=== PATIENT | male | born 1975 | race Caucasian/White ===

== ENCOUNTER 2016-06-26 20:39 | Emergency (ER) | payer SELFPAY ==
[2016-06-26 21:15] VITALS: BP 148/89
[2016-06-26] MEDS ORDERED: OXYCODONE-ACETAMINOPHEN 5-325 MG TABLET PO ONE (23:06)
--- NOTE | 2016-06-26 23:07 | ER Document Report ---
ED General - General Chief Complaint: Fall Injury Stated Complaint: BACK PAIN Mode of Arrival: Ambulatory Information source: Patient Notes: Patient presents emergency department with complaints of back pain. Patient reports that he was helping a friend yesterday standing on top of the ladder putting sheet rock on a ceiling and fell over approximately 6 feet lnading onto his right side onto carpet. He reports no change in LOC. Reports right- sided pain thoracic and low back pain since that time. Denies urinary or bowel incontinence or retention. LBM tonight, normal. Reports right foot numb. Report history of bulging disc with numbness to that foot. TRAVEL OUTSIDE OF THE [place] IN LAST 30 DAYS: No - HPI Onset: Yesterday Onset/Duration: Persistent Quality of pain: Achy Severity: Severe Pain Level: 5 Associated symptoms: None Exacerbated by: Movement Relieved by: Denies Similar symptoms previously: Yes Recently seen / treated by doctor: No - Related Data Allergies/Adverse Reactions: No Known Allergies Allergy (Verified 06/26/16 21:11) Past Medical History - General Information source: Patient - Social History Smoking Status: Current Every Day Smoker Cigarette use (# per day): Yes - 12/23 ppd Chew tobacco use (# tins/day): No Frequency of alcohol use: None Drug Abuse: None Family History: Reviewed & Not Pertinent Renal/ Medical History: Denies: Hx Peritoneal Dialysis Review of Systems - Review of Systems Notes: Review HPI for review of systems., All other systems negative Physical Exam - Vital signs Vitals: Temp Pulse Resp BP Pulse Ox 98.5 F 102 H 18 148/89 H 99 06/26/16 21:11 06/26/16 21:11 06/26/16 21:11 06/26/16 21:11 06/26/16 21:11 - Notes Notes: PHYSICAL EXAMINATION: GENERAL: Well-appearing and in no acute distress HEAD: Atraumatic, normocephalic. EYES: Pupils equal round and reactive to light, extraocular movements intact, sclera anicteric, conjunctiva are normal. ENT: nares patent, oropharynx clear without exudates. Moist mucous membranes. NECK: Normal range of motion, supple without lymphadenopathy No vertebral tenderness LUNGS: CTAB and equal. No wheezes rales or rhonchi. HEART: Regular rate and rhythm without murmurs ABDOMEN: Soft, no tenderness. No guarding, no rebound BACK: Complaints of generalized thoracic and lumbar back pain no obvious deformity good distal movement and sensation no weakness good reflexes EXTREMITIES: Normal range of motion, no pitting edema. No cyanosis. NEUROLOGICAL: Cranial nerves grossly intact. Normal sensory/motor exams. PSYCH: Normal mood, normal affect. SKIN: Warm, Dry, Course - Re-evaluation Re-evalutation: 06/27/16 The patient presents with low back pain without signs of spinal cord compression , cauda equine syndrome, infection, aneurysm, or other serious etiology. The patient is neurologically intact. The patient has good distal movement and sensation, denies urinary or bowel incontinence/retention. Given the extremely low risk of these diagnosis, further testing and evaluation for these possibilities does not appear to be indicated at this time. The patient has been instructed to return if the symptoms worsen or change in anyway. - Vital Signs Vital signs: Temp Pulse Resp BP Pulse Ox 98.5 F 102 H 18 148/89 H 99 06/26/16 21:11 06/26/16 21:11 06/26/16 21:11 06/26/16 21:11 06/26/16 21:11 - Diagnostic Test Radiology reviewed: Image reviewed, Reports reviewed - IMPRESSION: Trace multilevel spondylotic change without evidence of acute osseous injury EXAM DESCRIPTION: CT THORACIC SPINE WITHOUT COMPLETED DATE/TIME: 06/26/2016 11:36 pm REASON FOR STUDY: fall, back pain COMPARISON: None. TECHNIQUE: Axial images acquired through the thoracic spine without intravenous contrast. Images reviewed with lung, soft tissue and bone windows. Reconstructed coronal and sagittal MPR images reviewed. Images stored on PACS. All CT scanners at this facility use dose modulation, iterative reconstruction, and/or weight based dosing when appropriate to reduce radiation dose to as low as reasonably achievable (ALARA). [facility]: Dose Right [facility]: CareDose [facility]: Dose Right [facility]: Teradose 4D [facility]: [employer] RADIATION DOSE: 38.59 mGy. LIMITATIONS: None. FINDINGS: VISUALIZED LUNGS: No acute opacities. No pneumothorax. SOFT TISSUES: No soft tissue swelling. No masses. VERTEBRAL BODIES: No fractures. No dislocation. No acute findings. DISCS: Degenerative disc disease at multiple levels. ALIGNMENT: Normal. TRANSVERSE PROCESSES, POSTERIOR ELEMENTS: Small marginal osteophytes at multiple levels. HARDWARE: None in the spine. VISUALIZED RIBS: No fractures. OTHER: No other significant finding. TECHNICAL DOCUMENTATION: JOB ID: [id number] Quality ID # [id number]: Final reports with documentation of one or more dose reduction techniques (e.g., Automated exposure control, adjustment of the mA and/or kV according to patient size, use of iterative reconstruction technique) 2010 [employer]- All Rights Reserved CT/CT THORACIC SPINE WITHOUT IMPRESSION: Mild multilevel spondylotic change without evidence of acute osseous injury. Discharge - Discharge Clinical Impression: Back pain Qualifiers: Back pain location: back pain in unspecified location Chronicity: acute Back pain laterality: unspecified Qualified Code(s): M54.9 - Dorsalgia, unspecified Condition: Stable Disposition: HOME, SELF-CARE Instructions: Oral Narcotic Medication ([facility]), Muscle Relaxers ([facility]), Low Back Pain ([facility]), Ice Packs ([facility]) Additional Instructions: *You have been evaluated for back pain, degenerative disc disease, elevated blood pressure reading *Take medication as prescribed *Rest/Ice packs *Follow up with a primary care provider within one week for recheck *Return to ED for worsening condition, changes, needs, urinary or bowel incontinence or retention, numbness or tingling. Monitor your blood pressure. Your blood pressure was elevated today. This may be because you were anxious, in pain or because you need medication. It is important to follow up with your primary care provider for full evaluation. Prescriptions: Cyclobenzaprine HCl [Flexeril 10 Mg Tablet] 10 mg PO TID #30 tablet Oxycodone HCl/Acetaminophen [Percocet 5-325 mg Tablet] 1 - 2 tab PO ASDIR PRN # 15 tablet PRN Reason: Forms: Elevated Blood Pressure, Return to Work
== END 2016-06-27 00:17 | disposition home or self-care (01) ==
LOC: ER 20:39
DX: M54.6 Pain in thoracic spine (principal); M54.5 Low back pain; W11.XXXA Fall on and from ladder, initial encounter; Y93.H3 Activity, building and construction; R20.0 Anesthesia of skin; F17.210 Nicotine dependence, cigarettes, uncomplicated
CPT/HCPCS: 99283; 72128; 72131; L0120

== ENCOUNTER 2016-07-06 12:37 | Emergency (ER) | payer SELFPAY ==
[2016-07-06] MEDS ORDERED: DEXAMETHASONE SOD PHOS INJ 10 MG/1 ML VIAL IM ONE (13:27)
--- NOTE | 2016-07-06 13:28 | ER Document Report ---
ED Neck/Back Problem - General Chief Complaint: Low Back Pain Stated Complaint: BACK PAIN Time Seen by Provider: 07/06/16 13:00 Mode of Arrival: Ambulatory Information source: Patient Notes: 40-year-old male presents to ED for low back pain radiating down his right leg states she fell 2 weeks ago. States that the pain has been increasing. No loss of control of bowel or bladder muscle control. No loss of sensation. Walks freely. No new injuries. TRAVEL OUTSIDE OF THE [place] IN LAST 30 DAYS: No - HPI Patient complains to provider of: Lower back Onset: Other - Patient [place]. States that he fell 2 weeks ago and came into the ED was low back pain and muscle pain. His x-ray showed arthritis and degenerative disc disease Onset: Chronic Timing: Still present Quality of pain: Sharp - Radiating down right leg Severity: Severe Pain Level: 5 Context: Fall/near-fall - 2 weeks ago Recent injury: Yes - 2 weeks ago Associated symptoms: Like prior neck/back pain - Down right leg, Numbness/ tingling, Radiation to leg, Lower back pain. denies: Constipation, Incontinence , Motor loss, Sensory loss, Unable to urinate Exacerbated by: Nothing Relieved by: Nothing Similar symptoms previously: Yes Recently seen / treated by doctor: Yes - Related Data Allergies/Adverse Reactions: No Known Allergies Allergy (Verified 06/26/16 21:11) Past Medical History - General Information source: Patient - Social History Smoking Status: Current Every Day Smoker Cigarette use (# per day): Yes - one half packs per day Chew tobacco use (# tins/day): No Smoking Education Provided: Yes - less than 2 minutes Frequency of alcohol use: None Drug Abuse: None Family History: CAD, Hyperlipidemia, Hypertension, Malignancy Patient has suicidal ideation: No Patient has homicidal ideation: No - Past Medical History Cardiac Medical History: Reports: Hx Hypertension Pulmonary Medical History: Reports: Hx Asthma EENT Medical History: Reports: None Neurological Medical History: Reports: None Endocrine Medical History: Reports: None Renal/ Medical History: Reports: None Malignancy Medical History: Reports None GI Medical History: Reports: None Musculoskeltal Medical History: Reports Hx Arthritis, Reports Hx Musculoskeletal Deformity Skin Medical History: Reports None Psychiatric Medical History: Reports: None Traumatic Medical History: Reports: None Infectious Medical History: Reports: None Surgical Hx: Negative Past Surgical History: Reports: None Review of Systems - Review of Systems Constitutional: No symptoms reported EENT: No symptoms reported Cardiovascular: No symptoms reported Respiratory: No symptoms reported Gastrointestinal: No symptoms reported. denies: Constipation, Fecal incontinence Genitourinary: No symptoms reported. denies: Incontinence, Retention Male Genitourinary: No symptoms reported Musculoskeletal: Back pain, Muscle pain Skin: No symptoms reported Hematologic/Lymphatic: No symptoms reported Neurological/Psychological: Numbness, Tingling -: Yes All other systems reviewed and negative Physical Exam - Vital signs Vitals: Temp Pulse Resp BP Pulse Ox 97.8 F 100 16 133/84 H 100 07/06/16 12:46 07/06/16 12:46 07/06/16 12:46 07/06/16 12:46 07/06/16 12:46 Interpretation: Normal - General General appearance: Appears well, Alert - HEENT Head: Normocephalic, Atraumatic Eyes: Normal Pupils: PERRL - Respiratory Respiratory status: No respiratory distress Chest status: Nontender Breath sounds: Normal Chest palpation: Normal - Cardiovascular Rhythm: Regular Heart sounds: Normal auscultation Murmur: No - Abdominal Inspection: Normal Distension: No distension Bowel sounds: Normal Tenderness: Nontender Organomegaly: No organomegaly - Back Back: Normal, Tender, Vertebra tenderness. No: Deformity/step-off, CVA tenderness, Scars, Scoliosis, Wounds - Extremities General upper extremity: Normal inspection, Nontender, Normal color, Normal ROM , Normal temperature General lower extremity: Normal inspection, Nontender, Normal color, Normal ROM , Normal temperature, Normal weight bearing. No: Rosalie's sign - Neurological Neuro grossly intact: Yes Cognition: Normal Orientation: AAOx4 [place] Coma Scale Eye Opening: Spontaneous [place] Coma Scale Verbal: Oriented [place] Coma Scale Motor: Obeys Commands [place] Coma Scale Total: 15 Speech: Normal Cranial nerves: Normal Cerebellar coordination: Normal Motor strength normal: LUE, RUE, LLE, RLE Additional motor exam normals: Equal rail specialist Babinski reflex: Normal (flexor plantar) Sensory: Normal Knee - Reflex grade: 2 = Normal Ankle - Reflex grade: 2 = Normal - Psychological Associated symptoms: Normal affect, Normal mood - Skin Skin Temperature: Warm Skin Moisture: Dry Skin Color: Normal Course - Re-evaluation Re-evalutation: 07/06/16 13:45 Discussed x-ray from 2 weeks ago with patient patient was given Decadron in the emergency room discharged home with a prescription for 14 Percocet that he can take one twice a day until he follows up with his primary doctor in the beginning of July. The patient to make these Percocets last take ibuprofen during the day and use ice and heat packs. This is a chronic problem he's had this before he moved to [place] and had a MRI [place]. It was reactivated when he fell 2 weeks ago. 07/06/16 13:47 No signs of cauda equina. No loss of muscle control no loss of sensation no loss of control of bowel or bladder. - Vital Signs Vital signs: Temp Pulse Resp BP Pulse Ox 97.8 F 100 16 133/84 H 100 07/06/16 12:46 07/06/16 12:46 07/06/16 12:46 07/06/16 12:46 07/06/16 12:46 Discharge - Discharge Clinical Impression: Arthritis of low back, Degenerative disc disease, lumbar Condition: Stable Disposition: HOME, SELF-CARE Additional Instructions: LOW BACK PAIN: Three out of every four people will have an episode of disabling back pain during their lifetime. Most commonly the pain is due to straining of the muscles and ligaments in the low back. Usual treatment includes: (1) Rest on a firm surface. Avoid lying on your stomach. (2) Ice pack the painful area. After a few days, gentle heat may be used intermittently to relax the area, or ice packs can be continued. (3) Medication may be needed -- muscle relaxers and antiinflammatory medicines are commonly used. (4) As the back improves, exercises are prescribed to strengthen the back and abdominal muscles. Your doctor will advise you on the proper care for your back at each stage in your recovery. You may be better in a few days -- or healing may take several weeks. If new symptoms of a "herniated disc" (radiation of pain, numbness, or tingling down the back of the leg or weakness in the leg) occur, you should be re-examined. Further testing may be necessary. Chronic Back Pain Chronic back pain (pain persisting longer than three months) is a common problem. A medical evaluation can look for herniated disc, arthritis, osteoporosis, tumors, and infections. But at least half the time, there's no obvious treatable cause. Anxiety and depression tend to worsen back pain. Ibuprofen or other anti-inflammatory medicine can help. A heating pad, used for 15-20 minutes at a time, can ease pain. For this type of back pain, narcotic medicines should be avoided. Muscle relaxers are rarely helpful unless you're having spasms. Activity is important. Find an aerobic exercise program that your back can tolerate. Too much rest makes back pain worse. Specific back exercises are usually prescribed to strengthen the back and abdominal muscles. Often, a physical therapist can help. Avoid heavy lifting, working while bent over, or standing with both knees straight. Most back pain patients do better with a firm mattress. If new symptoms of a "herniated disc" (radiation of pain, numbness, or tingling down the back of the leg or weakness in the leg) occur, you should be re-examined. Chronic Pain Control Stress, inactivity, and depression make pain more severe regardless of the cause of the pain. Stress and poor physical condition can cause pain such as headaches and backache. Relaxation: Rest in a quiet place with your eyes closed for 20 minutes twice daily. Concentrate on a pleasant image, or simply "feel" your breathing. Clear your mind. Stress management: Deal with your "stressors." Either take action, or eliminate the stressor from your life. Don't let things hang over you. Accept those things you can't change. Nutrition: Eat small, balanced meals -- don't skip, don't overeat. Meals should be high-carbohydrate, low-sugar, low-fat. Exercise: Exercise helps painful conditions and eases stress. Get 30 minutes of moderate exercise, five days a week. Do an activity that does not flare your pain. Precautions: Pain which continues to disrupt daily activities, or which changes in nature, requires a medical evaluation. Pain Clinic referral is available. We do not manage chronic pain in the Emergency Department. We will try to appropriately help you through an acute flare of your chronic painful condition , but for on-going chronic pain that does not improve, you will need to see your private doctor or machine paint mixer. We do not provide repeated medication management of chronic painful conditions. If you wish, we can provide the name of local pain management physicians. ORAL NARCOTIC MEDICATION: You have been given a prescription for pain control. This medication is a narcotic. It's best taken with food, as nausea can result if taken on an empty stomach. Don't operate machinery or drive within six hours of taking this medication. Do not combine this medicine with alcohol, or with any medication which can cause sedation (such as cold tablets or sleeping pills) unless you get permission from the physician. Narcotics tend to cause constipation. If possible, drink plenty of fluids and eat a diet high in fiber and fruits. Please be aware that prescription narcotics also have the potential for abuse. People become addicted to these medications because of the general sense of wellbeing that they induce. This feeling along with a significant reduction in tension, anxiety, and aggression provides a stimulating seductive quality to these drugs. Once your pain is under control, we encourage you to discard your unused narcotics. STEROID MEDICATION: You have been given an injection of medicine of the cortisone/steroid class. This medication is used to control inflammation or allergy. It is often continued as a pill for a short period of time, until the acute process subsides. There are usually no side effects from short-term use of cortisone-like medications. Some persons feel an increased sense of well-being and are not sleepy at bedtime. Long-term use of cortisone medications is best avoided, unless required for a severe condition. If your condition does not remit, or relapses after the course of corticosteroid medication, you should consult your physician. ICE PACKS: Apply ice packs frequently against the painful area. Many different schedules are recommended, such as "20 minutes on, 20 minutes off" or "one hour ice, two hours rest." If you need to work, you may need to go longer between ice treatments. You should plan to have the area ice packed AT LEAST one fourth of the time. The ice should be applied over the wrap, tape, or splint, or over a layer of cloth -- not directly against the skin. Some ice bags have a built-in cloth and can be put directly on the skin. WARM PACKS: After approximately two days, apply gentle heat (such as a heating pad or hot water bottle) for about 20 to 30 minutes about every two hours -- at least four times daily. Warmth and elevation will help you make a more rapid recovery , and will ease the pain considerably. Do not use HOT heat, and never apply heat for longer than 30 minutes. The continuous heat can invisibly damage skin and muscles -- even when no burn is seen on the surface. Damaged muscles can make you MORE sore. FOLLOW-UP CARE: If you have been referred to a physician for follow-up care, call the physician s office for an appointment as you were instructed or within the next two days. If you experience worsening or a significant change in your symptoms, notify the physician immediately or return to the Emergency Department at any time for re-evaluation. Prescriptions: Oxycodone HCl/Acetaminophen [Percocet 5-325 mg Tablet] 1 tab PO BIDP PRN #14 tablet PRN Reason: Forms: Elevated Blood Pressure, Smoking Cessation Education, Return to Work [facility] [[facility]] - Follow up as needed
[2016-07-06 13:56] VITALS: BP 130/80
== END 2016-07-06 13:56 | disposition home or self-care (01) ==
LOC: ER 12:37
DX: M46.96 Unspecified inflammatory spondylopathy, lumbar region (principal); M51.36 Other intervertebral disc degeneration, lumbar region; M54.5 Low back pain; M54.9 Dorsalgia, unspecified; W19.XXXA Unspecified fall, initial encounter; M79.604 Pain in right leg; F17.210 Nicotine dependence, cigarettes, uncomplicated
CPT/HCPCS: 99283; 96372; J1100

== ENCOUNTER 2017-03-15 10:41 | Emergency (ER) | payer OTHER ==
--- NOTE | 2017-03-15 12:23 | ER Document Report ---
ED General - General Chief Complaint: Back Pain Stated Complaint: FALL/BACK PAIN Time Seen by Provider: 03/15/17 12:21 Mode of Arrival: Ambulatory Information source: Patient Notes: Patient is a 41-year-old male who presents with midline back pain that started after he fell while at work. He states he was helping a lady with his luggage and he fell going down her broken steps. 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 He states the pain radiates up and down his back and down his right leg. He has a history of back pain and has been diagnosed with degenerative disc disease and arthritis of his spine. He said he took 800 mg of ibuprofen and Flexeril last night with no relief. He states he tried driving today but was unable to due to the pain. He denies any fever, chills, numbness, tingling, unilateral weakness, saddle paresthesias, bowel or bladder incontinence, dysuria or hematuria. TRAVEL OUTSIDE OF THE [place] IN LAST 30 DAYS: No - Related Data Allergies/Adverse Reactions: No Known Allergies Allergy (Verified 06/26/16 21:11) Past Medical History - General Information source: Patient - Social History Smoking Status: Never Smoker Chew tobacco use (# tins/day): No Frequency of alcohol use: None Drug Abuse: None Family History: CAD, Hyperlipidemia, Hypertension, Malignancy Patient has suicidal ideation: No Patient has homicidal ideation: No - Past Medical History Cardiac Medical History: Reports: Hx Hypertension Pulmonary Medical History: Reports: Hx Asthma Renal/ Medical History: Denies: Hx Peritoneal Dialysis Musculoskeltal Medical History: Reports Hx Arthritis, Reports Hx Musculoskeletal Deformity Review of Systems - Review of Systems Constitutional: See HPI EENT: No symptoms reported Cardiovascular: No symptoms reported Respiratory: No symptoms reported Gastrointestinal: No symptoms reported Genitourinary: No symptoms reported Male Genitourinary: No symptoms reported Musculoskeletal: See HPI Skin: No symptoms reported Hematologic/Lymphatic: No symptoms reported Neurological/Psychological: See HPI Physical Exam - Vital signs Vitals: Temp Pulse Resp BP Pulse Ox 98.4 F 91 20 128/80 H 98 03/15/17 10:54 03/15/17 10:54 03/15/17 10:54 03/15/17 10:54 03/15/17 10:54 - Notes Notes: PHYSICAL EXAM: CONSTITUTIONAL: Alert and oriented, well-appearing and in no acute distress. HENT: Normocephalic, atraumatic. Trachea midline. Uvula midline. Moist mucous membranes. EYES: Pupils equal round and reactive to light, EOM intact. Sclera anicteric, conjunctiva are normal. No entrapment. NECK: supple without lymphadenopathy. No midline tenderness or paraspinous muscle spasms. No step-offs or deformities. ROM intact. HEART: Regular rate and rhythm without murmurs. LUNGS: CTAB and equal. No wheezes, rales or rhonchi. BACK: Tender to palpation to lumbar spine without deformities or step-offs, range of motion limited secondary to pain. Paralumbar spasms noted. 5+/5 strengths, DTRs 2+, SLR +. EXTREMITIES: Strength 5+/5. No bony tenderness, erythema, edema or deformity. Normal range of motion, no pitting edema. No cyanosis. Cap Refill <3 seconds. NEURO: Cranial nerves grossly intact. Normal sensory/motor exams. PSYCH: Normal mood, normal affect. SKIN: Warm and dry. Normal turgor. No rashes or lesions noted. Course - Re-evaluation Re-evalutation: 03/15/17 12:23 Patient seen and examined. Vital signs stable, nontoxic in appearance, has history of previous back pain that is chronic in nature. No neuro deficits on exam, he denies any saddle paresthesias, bowel or bladder incontinence. Imaging was obtained, results are reviewed by me. Imaging shows chronic changes but no acute abnormalities. Low suspicion for any meningitis, fracture , expanding/ruptured AAA, cauda equina syndrome, epidural abscess, spinal stenosis or other emergent condition at this time. Will treat with steroids, anti-inflammatories and muscle relaxers. Advised to follow-up with primary care doctor. At this time, will discharge with return precautions and follow-up recommendations. Verbal discharge instructions given at the bedside and opportunity for questions given. Medication warnings reviewed. Patient is in agreement with this plan and has verbalized understanding of return precautions and the need for primary care follow-up in the next 24-72 hours. - Vital Signs Vital signs: Temp Pulse Resp BP Pulse Ox 98.4 F 91 20 128/80 H 98 03/15/17 10:54 03/15/17 10:54 03/15/17 10:54 03/15/17 10:54 03/15/17 10:54 - Diagnostic Test Radiology reviewed: Image reviewed, Reports reviewed Discharge - Discharge Clinical Impression: Low back pain Qualifiers: Chronicity: acute Back pain laterality: midline Sciatica presence: with sciatica Sciatica laterality: bilateral sciatica Qualified Code(s): M54.42 - Lumbago with sciatica, left side; M54.41 - Lumbago with sciatica, right side; M54.41 - Lumbago with sciatica, right side Fall, accidental Qualifiers: Encounter type: initial encounter Qualified Code(s): W19.XXXA - Unspecified fall, initial encounter Condition: Stable Disposition: HOME, SELF-CARE Additional Instructions: LOW BACK PAIN: Three out of every four people will have an episode of disabling back pain during their lifetime. Most commonly the pain is due to straining of the muscles and ligaments in the low back. Usual treatment includes: (1) Rest on a firm surface. Avoid lying on your stomach. (2) Ice pack the painful area. After a few days, gentle heat may be used intermittently to relax the area, or ice packs can be continued. (3) Medication may be needed -- muscle relaxers and antiinflammatory medicines are commonly used. (4) As the back improves, exercises are prescribed to strengthen the back and abdominal muscles. Your doctor will advise you on the proper care for your back at each stage in your recovery. You may be better in a few days -- or healing may take several weeks. If new symptoms of a "herniated disc" (radiation of pain, numbness, or tingling down the back of the leg or weakness in the leg) occur, you should be re-examined. Further testing may be necessary. PAIN MEDICATION INJECTION: You have received an injection of a pain medication. You should experience significant pain relief within 45 minutes. If this injection was a narcotic -- it will impair your judgement, slow your reaction time and make you sleepy (as well as relieve your pain). Narcotics also can cause nausea. You should not drive, work with machinery, or perform any task requiring mental alertness until all effects of the medication are gone -- six to eight hours. Do not take any alcohol, or sedatives, and do not take any other medication without checking with your physician. Anti-Inflammatory Medication You have received a prescription for an antiinflammatory agent. This is an excellent, safe drug for pain control. In addition, it has potent antiinflammatory effects which are beneficial, especially in the treatment of injuries, arthritis, or tendonitis. It's best to take this medicine with food. Persons with ulcer disease or allergy to aspirin should notify their physician of this before taking this drug. Take the medication exactly as prescribed. Don't take additional doses unless instructed to do so by your doctor. If you develop wheezing, shortness of breath, hives, faintness, stomach pain, vomiting, or dark black stools, return for re-evaluation at once. MUSCLE RELAXERS: Muscle relaxing medications are usually prescribed for acute muscle spasm or injury to the neck and back. They are often combined with antiinflammatory pain medication for increased relief. You may stop the muscle relaxer when the pain and stiffness have improved. Start the medication again if spasms recur. Muscle relaxers may cause drowsiness, especially with the first dose. Do not operate machinery or drive while under the effects of the medication. Most muscle relaxers last up to 24 hours. Do not combine the medication with alcohol. ICE PACKS: Apply ice packs frequently against the painful area. Many different schedules are recommended, such as "20 minutes on, 20 minutes off" or "one hour ice, two hours rest." If you need to work, you may need to go longer between ice treatments. You should plan to have the area ice packed AT LEAST one fourth of the time. The ice should be applied over the wrap, tape, or splint, or over a layer of cloth -- not directly against the skin. Some ice bags have a built-in cloth and can be put directly on the skin. WARM PACKS: After approximately two days, apply gentle heat (such as a heating pad or hot water bottle) for about 20 to 30 minutes about every two hours -- at least four times daily. Warmth and elevation will help you make a more rapid recovery , and will ease the pain considerably. Do not use HOT heat, and never apply heat for longer than 30 minutes. The continuous heat can invisibly damage skin and muscles -- even when no burn is seen on the surface. Damaged muscles can make you MORE sore. FOLLOW-UP CARE: If you have been referred to a physician for follow-up care, call the physician s office for an appointment as you were instructed or within the next two days. If you experience worsening or a significant change in your symptoms, notify the physician immediately or return to the Emergency Department at any time for re-evaluation. Prescriptions: Ketorolac Tromethamine [Toradol 10 mg Tablet] 10 mg PO Q8HP PRN #20 tablet PRN Reason: Methocarbamol [Robaxin 500 mg Tablet] 500 mg PO TID #20 tablet Prednisone [Deltasone 10 mg Tablet] 10 mg PO ASDIR PRN #21 tablet PRN Reason: Forms: Elevated Blood Pressure, Return to Work
--- NOTE | 2017-03-15 13:22 | RADIOLOGY REPORT (SQ) ---
EXAM DESCRIPTION: L SPINE WHOLE COMPLETED DATE/TIME: 03/15/2017 1:14 pm REASON FOR STUDY: low back pain COMPARISON: None. NUMBER OF VIEWS: Five views including obliques. TECHNIQUE: AP, lateral, oblique, and sacral radiographic images acquired of the lumbar spine. LIMITATIONS: None. FINDINGS: MINERALIZATION: Normal. SEGMENTATION: Normal. No transitional anatomy. ALIGNMENT: Normal. VERTEBRAE: Maintained height. No fracture or worrisome bone lesion. DISCS: Minimal disc space narrowing L5-S1. POSTERIOR ELEMENTS: Pedicles and facets are intact. No pars defect or posterior arch defects. HARDWARE: None in the spine. PARASPINAL SOFT TISSUES: Normal. PELVIS: Intact as visualized. No fractures or worrisome bone lesions. SI joints intact. OTHER: No other significant finding. IMPRESSION: Minimal disc space narrowing L5-S1. Study is otherwise normal. TECHNICAL DOCUMENTATION: JOB ID: [id number] [employer]- All Rights Reserved
[2017-03-15] MEDS ORDERED: METHOCARBAMOL 500 MG TABLET PO ONE (13:28)
[2017-03-15] MEDS ORDERED: KETOROLAC TROMETHAMINE 60 MG/2 ML SDV IM ONE (13:28)
[2017-03-15 13:53] VITALS: BP 133/97
== END 2017-03-15 13:53 | disposition home or self-care (01) ==
LOC: ER 10:41
DX: M54.42 Lumbago with sciatica, left side (principal); M54.41 Lumbago with sciatica, right side; M54.9 Dorsalgia, unspecified; W19.XXXA Unspecified fall, initial encounter
CPT/HCPCS: 99283; 96372; 72110; J1885

== ENCOUNTER 2019-01-03 20:51 | Emergency (ER) | payer SELFPAY ==
[2019-01-03] MEDS ORDERED: IBUPROFEN 800 MG TABLET PO ONE (21:10)
--- NOTE | 2019-01-03 21:14 | ER Document Report ---
ED Medical Screen (RME) - General Chief Complaint: Pain With Urination Stated Complaint: URINATING ISSUES Time Seen by Provider: 01/03/19 21:06 Mode of Arrival: Ambulatory Information source: Patient Notes: This 43-year-old male presents emergency department with complaints of pain with void and decreased urine output. Also complains of testicular pain. Reports his symptoms started December 24 after he used some lubrication during sex. Reports he had the same thing happened years ago and had a urinary tract infection. Reports low-grade temp not feeling good slept all day. Complains of bilateral flank pain now. Denies vomiting diarrhea. I have greeted and performed a rapid initial assessment of this patient. A comprehensive ED assessment and evaluation of the patient, analysis of test results and completion of the medical decision making process will be conducted by additional ED providers. Dictation of this chart was performed using voice recognition software; therefore, there may be some unintended grammatical errors. TRAVEL OUTSIDE OF THE [place] IN LAST 30 DAYS: No - Related Data Allergies/Adverse Reactions: No Known Allergies Allergy (Verified 06/26/16 21:11) Past Medical History - Social History Chew tobacco use (# tins/day): No - Past Medical History Cardiac Medical History: Reports: Hx Hypertension Pulmonary Medical History: Reports: Hx Asthma Renal/ Medical History: Denies: Hx Peritoneal Dialysis Musculoskeltal Medical History: Reports Hx Arthritis, Reports Hx Musculoskeletal Deformity Physical Exam - Vital signs Vitals: Temp Pulse Resp BP Pulse Ox 98.8 F 119 H 20 134/70 H 100 01/03/19 21:00 01/03/19 21:00 01/03/19 21:00 01/03/19 21:00 01/03/19 21:00 Course - Vital Signs Vital signs: Temp Pulse Resp BP Pulse Ox 98.8 F 119 H 20 134/70 H 100 01/03/19 21:00 01/03/19 21:00 01/03/19 21:00 01/03/19 21:00 01/03/19 21:00
--- NOTE | 2019-01-03 22:13 | ER Document Report ---
ED General - General Chief Complaint: Pain With Urination Stated Complaint: URINATING ISSUES Time Seen by Provider: 01/03/19 21:06 Mode of Arrival: Ambulatory TRAVEL OUTSIDE OF THE [place] IN LAST 30 DAYS: No - HPI Patient complains to provider of: testicle pain Notes: 43 y/o male presenting to ED for evaluation of 1-2 weeks of worsening right testicle pain and intermittent penile discharge no fever or chills some mild lower abdominal pain no pain w/ defecation no vomiting no skin change to scrotum no rash to penis or groin denies chance of STI - Related Data Allergies/Adverse Reactions: No Known Allergies Allergy (Verified 06/26/16 21:11) Past Medical History - General Information source: Patient - Social History Smoking Status: Current Every Day Smoker Chew tobacco use (# tins/day): No Family History: CAD, Hyperlipidemia, Hypertension, Malignancy Patient has suicidal ideation: No Patient has homicidal ideation: No - Past Medical History Cardiac Medical History: Reports: Hx Hypertension Pulmonary Medical History: Reports: Hx Asthma Renal/ Medical History: Denies: Hx Peritoneal Dialysis Musculoskeletal Medical History: Reports Hx Arthritis, Reports Hx Musculoskeletal Deformity Review of Systems - Review of Systems Constitutional: No symptoms reported EENT: No symptoms reported Cardiovascular: No symptoms reported Respiratory: No symptoms reported Gastrointestinal: No symptoms reported Genitourinary: No symptoms reported Male Genitourinary: Testicular pain Musculoskeletal: No symptoms reported Skin: No symptoms reported Hematologic/Lymphatic: No symptoms reported Neurological/Psychological: No symptoms reported Physical Exam - Vital signs Vitals: Temp Pulse Resp BP Pulse Ox 98.8 F 119 H 20 134/70 H 100 01/03/19 21:00 01/03/19 21:00 01/03/19 21:00 01/03/19 21:00 01/03/19 21:00 Interpretation: Normal - General General appearance: Appears well, Alert - HEENT Head: Normocephalic, Atraumatic Eyes: Normal Pupils: PERRL - Respiratory Respiratory status: No respiratory distress Chest status: Nontender Breath sounds: Normal Chest palpation: Normal - Cardiovascular Rhythm: Regular Heart sounds: Normal auscultation Murmur: No - Abdominal Inspection: Normal Distension: No distension Bowel sounds: Normal Tenderness: Nontender Organomegaly: No organomegaly - Genitourinary Tenderness: Testicle tender - right Scrotum: Other - no rash - Back Back: Normal, Nontender - Extremities General upper extremity: Normal inspection, Nontender, Normal color, Normal ROM, Normal temperature General lower extremity: Normal inspection, Nontender, Normal color, Normal ROM, Normal temperature, Normal weight bearing. No: Rosalie's sign - Neurological Neuro grossly intact: Yes Cognition: Normal Orientation: AAOx4 Estrellita Coma Scale Eye Opening: Spontaneous Estrell[place] Coma Scale Verbal: Oriented Estrellita Coma Scale Motor: Obeys Commands [place] Coma Scale Total: 15 Speech: Normal Motor strength normal: LUE, RUE, LLE, RLE Sensory: Normal - Psychological Associated symptoms: Normal affect, Normal mood - Skin Skin Temperature: Warm Skin Moisture: Dry Skin Color: Normal Course - Re-evaluation Re-evalutation: 01/04/19 00:39 orchitis on US - no torsion labs w/ mild leukocytosis rocephin given in ED discussed STI possibility and patient wishes to wait on testing before empiric treatment - Vital Signs Vital signs: Temp Pulse Resp BP Pulse Ox 98.8 F 119 H 20 134/70 H 100 01/03/19 21:00 01/03/19 21:00 01/03/19 21:00 01/03/19 21:00 01/03/19 21:00 - Laboratory Result Diagrams: 01/03/19 22:08 01/03/19 22:08 Laboratory results interpreted by me: 01/03/19 01/03/19 01/03/19 22:08 22:08 23:50 WBC 12.1 H Hgb 13.3 L RDW 16.2 H Carbon Dioxide 21 L Alkaline Phosphatase 144 H Ur Leukocyte Esterase MODERATE H - Diagnostic Test Radiology reviewed: Image reviewed, Reports reviewed Discharge - Discharge Clinical Impression: Orchitis, Elevated blood pressure reading Condition: Stable Disposition: HOME, SELF-CARE Instructions: Testicular Pain ([facility]) Additional Instructions: follow up with pcp as outpatient take antibiotic as directed return to the ED with worsening Prescriptions: Ciprofloxacin HCl [Cipro 500 mg Tablet] 500 mg PO BID #20 tablet Forms: Elevated Blood Pressure, Smoking Cessation Education Referrals: BARBARA SEGURA MD [NO LOCAL MD] - Follow up as needed
[2019-01-03 22:29] LABS: ABSOLUTE BASOPHILS # (AUTO) 0.1 10^3/uL (0.0-0.2); ABSOLUTE EOSINOPHILS # (AUTO) 0.2 10^3/uL (0.0-0.6); ABSOLUTE MONOCYTES (AUTO) 1.4 10^3/uL (0.1-1.4); ABSOLUTE NEUT (AUTO) 7.5 10^3/uL (1.7-8.2); BASOPHILS % (AUTO) 0.7 % (0-2); EOSINOPHILS % (AUTO) 1.3 % (0-6); HEMATOCRIT 39.6 % (37.9-51.0); HEMOGLOBIN 13.3 g/dL (13.5-17.0); LYMPHOCYTES % (AUTO) 24.7 % (13-45); MEAN CORPUSCULAR HEMOGLOBIN 27.4 pg (27.0-33.4); MEAN CORPUSCULAR HGB CONC 33.7 g/dL (32.0-36.0); MEAN CORPUSCULAR VOLUME 81 fl (80-97); MONOCYTES % (AUTO) 11.3 % (3-13); PLATELET COUNT 264 10^3/uL (150-450); RED BLOOD COUNT 4.87 10^6/uL (4.35-5.55); RED CELL DISTRIBUTION WIDTH 16.2 % (11.5-14.0); TOTAL CELLS COUNTED % (AUTO) 100 %; WHITE BLOOD COUNT 12.1 10^3/uL (4.0-10.5)
[2019-01-03 22:44] LABS: ALBUMIN 3.9 g/dL (3.5-5.0); ALKALINE PHOSPHATASE 144 U/L (38-126); ANION GAP 11 (5-19); ASPARTATE AMINO TRANSFERASE 23 U/L (17-59); BILIRUBIN,DIRECT 0.2 mg/dL (0.0-0.4); BILIRUBIN,TOTAL 0.5 mg/dL (0.2-1.3); BLOOD UREA NITROGEN 9 mg/dL (7-20); CALCIUM 9.6 mg/dL (8.4-10.2); CARBON DIOXIDE 21 mmol/L (22-30); CHLORIDE 105 mmol/L (98-107); GLUCOSE 103 mg/dL (75-110); POTASSIUM 4.2 mmol/L (3.6-5.0); TOTAL PROTEIN 7.8 g/dL (6.3-8.2)
--- NOTE | 2019-01-03 23:18 | RADIOLOGY REPORT (SQ) ---
EXAM DESCRIPTION: CLINICAL HISTORY: 43 years Male testicular pain COMPARISON: None. TECHNIQUE: Real-time, izquierdo scale sonographic and duplex imaging performed to evaluate the testicles FINDINGS: Right testicle is normal in size and echogenicity. Mildly increased blood flow to the right testicle as compared to the contralateral side which could reflect orchitis. No evidence of intratesticular mass. Left testicle is normal in size and echogenicity. Normal blood flow to the left testicle. No evidence of intratesticular mass. Epididymides are unremarkable. Trace hydrocele on the left. Small right varicocele. IMPRESSION: Mildly increased blood flow to the right testicle which could reflect orchitis
[2019-01-03] MEDS ORDERED: CEFTRIAXONE 1 GM/D5W RTU 1 GM/50 ML RTUPB IV ONE (23:33)
[2019-01-03] MEDS ORDERED: HYDROCODONE/ACETAMINOPHEN 5-325 MG TABLET PO ONE (23:56)
[2019-01-04 00:12] LABS: APPEARANCE,URINE CLEAR; BILIRUBIN,URINE NEGATIVE (NEGATIVE); COLOR,URINE YELLOW; GLUCOSE, URINE NEGATIVE (NEGATIVE); KETONES,URINE NEGATIVE (NEGATIVE); LEUKOCYTE ESTERASE,URINE MODERATE (NEGATIVE); NITRITE,URINE NEGATIVE (NEGATIVE); PROTEIN,URINE NEGATIVE (NEGATIVE); URINE SPECIFIC GRAVITY 1.009; UROBILINOGEN,URINE NEGATIVE mg/dL (<2.0)
[2019-01-04 00:55] VITALS: BP 100/82
[2019-01-04 01:02] LABS: CHLAM PCR NOT DETECTED (NOT DETECT)
== END 2019-01-04 00:55 | disposition home or self-care (01) ==
LOC: ER 20:51
DX: N45.2 Orchitis (principal); I10 Essential (primary) hypertension; R36.9 Urethral discharge, unspecified; R10.30 Lower abdominal pain, unspecified; R30.9 Painful micturition, unspecified; N50.811 Right testicular pain; F17.200 Nicotine dependence, unspecified, uncomplicated; J45.909 Unspecified asthma, uncomplicated
CPT/HCPCS: 36415; 87040; 85025; 80053; 81001; 87491; 87591; 83605; 76870; 93976; J0696

== ENCOUNTER 2019-10-29 19:19 | Emergency (ER) | payer SELFPAY ==
--- NOTE | 2019-10-29 19:48 | ER Document Report ---
ED Medical Screen (RME) - General Chief Complaint: Testicular Pain Stated Complaint: GROIN PAIN,TESTICULAR SWELLING Time Seen by Provider: 10/29/19 19:39 Mode of Arrival: Wheelchair Information source: Patient Notes: 44-year-old male presented to ED for complaint of left testicle and groin pain. He states this started yesterday. He states that he took amoxicillin and ibuprofen at home. He states his had some leftover amoxicillin so he took that as well as 800 ibuprofen. He states his last ibuprofen was around 10 AM. Patient states that his examined his testicle area. She states it was dark red almost to dark purple on the left side. He states he does smoke a pack a day does not drink alcohol or use any illicit drugs. He does have a history of kidney stones. He states he thought it was just a kidney stone until the pain got so bad that he cannot hardly stand up. He is alert oriented respirations regular nonlabored speaking in full sentences. He has been taking 2 ultrasound stat for a scrotal ultrasound. I have greeted and performed a rapid initial assessment of this patient. A comprehensive ED assessment and evaluation of the patient, analysis of test results and completion of medical decision making process will be conducted by an additional ED providers. TRAVEL OUTSIDE OF THE [place] IN LAST 30 DAYS: No - Related Data Allergies/Adverse Reactions: No Known Allergies Allergy (Verified 06/26/16 21:11) Past Medical History - Past Medical History Cardiac Medical History: Reports: Hx Hypertension Pulmonary Medical History: Reports: Hx Asthma Renal/ Medical History: Denies: Hx Peritoneal Dialysis Musculoskeltal Medical History: Reports Hx Arthritis, Reports Hx Musculoskeletal Deformity Physical Exam - Vital signs Vitals: Temp Pulse Resp BP Pulse Ox 99.9 F 89 20 116/68 97 10/29/19 19:23 10/29/19 19:23 10/29/19 19:23 10/29/19 19:23 10/29/19 19:23 Course - Vital Signs Vital signs: Temp Pulse Resp BP Pulse Ox 99.9 F 89 20 116/68 97 10/29/19 19:23 10/29/19 19:23 10/29/19 19:23 10/29/19 19:23 10/29/19 19:23
--- NOTE | 2019-10-29 20:33 | RADIOLOGY REPORT (SQ) ---
EXAM DESCRIPTION: Ultrasound scrotum CLINICAL HISTORY: Left scrotal pain and swelling COMPARISON: January 03, 2019 FINDINGS: The size and echogenicity of the testicles are within normal limits and similar bilaterally. No focal nor diffuse abnormalities are seen. Color Doppler flow is seen in both testicles in a symmetric fashion. Spectral waveform analysis of the testicles shows low resistance arterial waveforms on both sides. Right epididymis is normal. The left epididymis appears heterogeneous with increased vascularity. A small left epididymal head cyst measures up to 3 mm. There is a left hydrocele. No definite abnormality is visualized on provided images of the left inguinal canal. IMPRESSION: Heterogeneous appearance of the left epididymis with increased vascularity is nonspecific but may represent epididymitis in the correct clinical setting. Clinical correlation is advised. There is also a left hydrocele.
[2019-10-29 20:42] LABS: APPEARANCE,URINE CLEAR; BILIRUBIN,URINE NEGATIVE (NEGATIVE); COLOR,URINE YELLOW; GLUCOSE, URINE NEGATIVE (NEGATIVE); KETONES,URINE NEGATIVE (NEGATIVE); LEUKOCYTE ESTERASE,URINE MODERATE (NEGATIVE); NITRITE,URINE NEGATIVE (NEGATIVE); PROTEIN,URINE NEGATIVE (NEGATIVE); URINE SPECIFIC GRAVITY 1.016; UROBILINOGEN,URINE NEGATIVE mg/dL (<2.0)
--- NOTE | 2019-10-29 20:50 | ER Document Report ---
ED GI/ - General Chief Complaint: Testicular Pain Stated Complaint: GROIN PAIN,TESTICULAR SWELLING Time Seen by Provider: 10/29/19 19:39 Mode of Arrival: Wheelchair TRAVEL OUTSIDE OF THE [place] IN LAST 30 DAYS: No - HPI Notes: 10/29/19 21:02 44-year-old male presents with pain to his left testicle. Patient has had symptoms for the past 2 days. He states that initially started as feeling hard to pee, then he noticed an increase in urination. He states that it felt similar to a kidney stone, however has now stated this is much different. His urine has ranged from clear to a dark color. He did have an episode where he had yellow pus come from his penis. The pain has progressively worsened for the past 2 days. He took a dose of amoxicillin and ibuprofen at home. He is now had some swelling to the left side of his testicle which started today, prompting ED evaluation. He denies abdominal pain, vomiting or diarrhea. Denies fever. Has never had symptoms like this before. - Related Data Allergies/Adverse Reactions: No Known Allergies Allergy (Verified 06/26/16 21:11) Past Medical History - General Information source: Patient - Social History Smoking Status: Current Every Day Smoker Family History: CAD, Hyperlipidemia, Hypertension, Malignancy Patient has homicidal ideation: No - Past Medical History Cardiac Medical History: Reports: Hx Hypertension Pulmonary Medical History: Reports: Hx Asthma Renal/ Medical History: Denies: Hx Peritoneal Dialysis Musculoskeletal Medical History: Reports Hx Arthritis, Reports Hx Musculoskeletal Deformity Review of Systems - Review of Systems Constitutional: denies: Fever EENT: No symptoms reported Cardiovascular: No symptoms reported Respiratory: No symptoms reported Gastrointestinal: Constipation. denies: Abdominal pain, Diarrhea, Vomiting Genitourinary: Dysuria Male Genitourinary: Testicular pain Musculoskeletal: No symptoms reported Skin: No symptoms reported Neurological/Psychological: No symptoms reported Physical Exam - Vital signs Vitals: Temp Pulse Resp BP Pulse Ox 99.9 F 89 20 116/68 97 10/29/19 19:23 10/29/19 19:23 10/29/19 19:23 10/29/19 19:23 10/29/19 19:23 - General General appearance: Appears well, Alert In distress: None - HEENT Head: Normocephalic, Atraumatic Eyes: No: Scleral icterus Conjunctiva: Normal Pupils: PERRL - Respiratory Respiratory status: No respiratory distress - Cardiovascular Rhythm: Regular - Abdominal Distension: No distension Tenderness: Nontender - Genitourinary Tenderness: Epididymis tender - Left Cremasteric reflex: Normal Scrotum: Swelling - Mild left-sided. No: Redness, Hot to touch Notes: No expressible penile discharge. No marked left groin lymphadenopathy. - Extremities General upper extremity: Normal ROM General lower extremity: Normal ROM - Neurological Neuro grossly intact: Yes Cognition: Normal Orientation: AAOx4 - Psychological Associated symptoms: Normal affect - Skin Skin Temperature: Warm Course - Re-evaluation Re-evalutation: 10/29/19 21:05 [age]-year-old male with left-sided testicular pain x2 days. On exam he does have tenderness over the epididymis. There is some mild swelling to the left hem iscrotum, exam not consistent with cellulitis or Kaushik's at this time. Normal cremasteric reflex. Testicles with normal lie. Differential includes epididymitis versus orchitis versus STD. Will send gonorrhea chlamydia testing. Will treat symptomatically with Toradol and fluids. Patient received ultrasound via triage process, it is negative for torsion, it has findings suggesting of epididymitis, this is consistent with physical exam. I updated patient and his on this finding. Will give dose of doxy now for coverage. 10/29/19 22:47 Into check on patient, he looks improved. was not in the room. I discussed with him he has been tested for STDs, he states he does not have concern for infection. 10/30/19 00:27 Patient positive for gonorrhea. He was updated. Will order Rocephin and azithromycin. Doxy for 10 days. Patient given instructions to abstain from sexual intercourse and to tell his partner(s) to be treated as well. Return precautions given, stable at time of discharge. - Vital Signs Vital signs: Temp Pulse Resp BP Pulse Ox 99.9 F 89 20 116/68 97 10/29/19 19:23 10/29/19 19:23 10/29/19 19:23 10/29/19 19:23 10/29/19 19:23 - Laboratory Laboratory results interpreted by me: 10/29/19 10/29/19 20:19 22:31 Ur Leukocyte Esterase MODERATE H Urine Ascorbic Acid 40 H N.gonorrhoeae DNA (PCR) DETECTED H Discharge - Discharge Clinical Impression: Epididymitis, Gonorrhea Condition: Stable Disposition: HOME, SELF-CARE Instructions: Epididymitis ([facility]), Gonorrhea ([facility]), Doxycycline ([facility]) Additional Instructions: You received treatment today for gonorrhea. Please begin 10-day course of doxycycline for epididymitis, be sure to stay covered up and wear sunscreen while in the sun as photosensitivity is a common side effect. Please have your partner treated for gonorrhea. Abstain from sexual intercourse until treatment has occurred. Return to the emergency department for any concerning worsening symptoms. Prescriptions: Doxycycline Hyclate 100 mg PO BID 10 Days #20 tablet.
[2019-10-29] MEDS ORDERED: RINGERS SOLUTION,LACTATED 1,000 ML IV ONE (21:01)
[2019-10-29] MEDS ORDERED: KETOROLAC TROMETHAMINE INJ/PF 30 MG/1 ML SDV IV ONE (21:01)
[2019-10-29] MEDS ORDERED: DOXYCYCLINE HYCLATE 100 MG TABLET PO ONE (21:02)
[2019-10-30 00:18] LABS: CHLAM PCR NOT DETECTED (NOT DETECT)
[2019-10-30] MEDS ORDERED: CEFTRIAXONE INJ 250 MG VIAL IM ONE (00:23)
[2019-10-30] MEDS ORDERED: LIDOCAINE 1% INJ (10 MG/ML) 10 ML MDV IM ONE (00:23)
[2019-10-30] MEDS ORDERED: AZITHROMYCIN 250 MG TABLET PO ONE (00:27)
[2019-10-30 00:50] VITALS: BP 135/71
== END 2019-10-30 00:49 | disposition home or self-care (01) ==
LOC: ER 19:19
DX: N45.1 Epididymitis (principal); A54.9 Gonococcal infection, unspecified; N50.812 Left testicular pain; F17.200 Nicotine dependence, unspecified, uncomplicated; K59.00 Constipation, unspecified; I10 Essential (primary) hypertension; Z87.442 Personal history of urinary calculi
CPT/HCPCS: 99285; 96372; 96361; 96374; 87086; 81001; 87491; 87591; 76870; 93976; J1885; J7120; J0696